=== PATIENT | female | born 1995 | race Caucasian/White ===

== ENCOUNTER 2018-01-21 20:41 | Emergency (ER) | payer OTHER ==
[2018-01-21] MEDS ORDERED: LIDOCAINE 1% MPF 5 ML VIAL ONE (21:20)
[2018-01-21] MEDS ORDERED: LIDOCAINE 1% W/EPI 1:100,000 MDV 50 ML VIAL ONE (21:49)
--- NOTE | 2018-01-21 22:52 | EDPHYS ---
Physician Documentation [facility] Name: Evelia Peck Age: 22 yrs Sex: Female : 1995 Arrival Date: 01/21/2018 Time: 20:41 Bed 25 Private MD: ED Physician Orlin Nagel HPI: 01/21 21:25 This 22 yrs old Female presents to ER via Ambulatory with complaints of cp Splinter. 21:25 The patient presents with foreign body. cp 21:25 The complaints affect the heel of right foot. Context: stepped on piece of wood. Onset: cp The symptoms/episode began/occurred just prior to arrival. PET HANDLER: 20:47 LMP 12/21/2017 la1 Historical: - Allergies: 20:46 No Known Allergies; la1 - PMHx: 20:46 Endometriosis; la1 - Immunization history:: Adult Immunizations up to date. - Social history:: Smoking status: Patient uses tobacco products, smokes one-half pack cigarettes per day. - Ebola Screening: : No symptoms or risks identified at this time. ROS: 21:30 Constitutional: Negative for body aches, chills, fever, poor PO intake. cp 21:30 Skin: Positive for of the heel of right foot, wooden foreign body, Negative for cp cellulitis, rash. 21:30 Neuro: Negative for numbness. 21:30 All other systems are negative. Exam: 21:35 Constitutional: The patient appears in no acute distress, alert, awake, non-toxic, well cp developed, well nourished. 21:35 Head/Face: Normocephalic, atraumatic. cp 21:35 Eyes: Periorbital structures: appear normal, Conjunctiva: normal, no exudate, no injection, Lids and lashes: appear normal, bilaterally. 21:35 ENT: External ear(s): are unremarkable, Nose: is normal, Mouth: is normal, Posterior pharynx: is normal, airway is patent. 21:35 Chest/axilla: Inspection: normal. 21:35 Cardiovascular: Rate: normal. 21:35 Respiratory: the patient does not display signs of respiratory distress, Respirations: normal, no use of accessory muscles, no retractions, no splinting, no tachypnea. 21:35 Skin: injury, that can be described as foreign body containing, without bleeding, puncture(s), that are superficial, of the heel of right foot. Vital Signs: 20:47 BP 106 / 70; Pulse 91; Resp 15; Temp 97.4; Pulse Ox 100% on R/A; Weight 58.97 kg; la1 Height 5 ft. 1 in. (154.94 cm); 20:47 Body Mass Index 24.56 (58.97 kg, 154.94 cm) la1 Procedures: 22:48 Foreign Body Removal: sliver of wood, from the heel of right foot, by incising to cp remove, using lidocaine 1% with epinephrine to anesthesize the area, tweezers, Dressinx4s were used to dress the wound, bacitracin, The patient tolerated the removal well, wound irrigated. MDM: 21:13 Patient medically screened. cp 22:00 Differential diagnosis: foreign body, puncture wound. cp 22:49 Data reviewed: vital signs, nurses notes, and as a result, I will discharge patient. cp 22:49 Counseling: I had a detailed discussion with the patient and/or guardian regarding: the cp historical points, exam findings, and any diagnostic results supporting the discharge/admit diagnosis, to return to the emergency department if symptoms worsen or persist or if there are any questions or concerns that arise at home. Response to treatment: the patient's symptoms have markedly improved after treatment, and as a result, I will discharge patient. Special discussion: I discussed in detail with the patient the higher chance of wound infection based on his presenting history. 01/21 22:18 Order name: Wound dressing: please clean and irrigate wound, dress with betadine; cp Complete Time: 22:43 Administered Medications: 21:50 Drug: Lidocaine-Epinephrine -1%: (1:100,000) 5 ml Volume: 20 ml; Route: Infiltration; aj Disposition: 23:30 Chart complete. cp Disposition: 01/21/18 22:50 Discharged to Home. Impression: Removal of Foreign Body from Right Heel. - Condition is Stable. - Discharge Instructions: Foreign Body. - Prescriptions for Keflex 500 mg Oral Capsule - take 1 capsule by ORAL route every 6 hours for 7 days; 20 capsule. - Medication Reconciliation Form, Thank You Letter, Antibiotic Education, Prescription Opioid Use form. - Follow up: Private Physician; When: 2 - 3 days; Reason: Wound Recheck. - Problem is new. - Symptoms have improved. Addendum: 01/24/2018 08:57 Co-signature as Attending Physician, Orlin Nagel MD I agree with the assessment and c paulson plan of care. Signatures: Lauren Calabrese, RN Orlin Day MD MD cha Attema, Lee RN RN la1 Orlin Reardon PA PA cp Michael Lucio RN RN rv Corrections: (The following items were deleted from the chart) 01/21 22:55 22:50 01/21/2018 22:50 Discharged to Home. Impression: Removal of Foreign Body from rv Right Heel. Condition is Stable. Forms are Medication Reconciliation Form, Thank You Letter, Antibiotic Education, Prescription Opioid Use. Follow up: Private Physician; When: 2 - 3 days; Reason: Wound Recheck. Problem is new. Symptoms have improved. cp
--- NOTE | 2018-01-21 22:52 | ER ---
Nurse's Notes [facility] Name: Evelia Peck Age: 22 yrs Sex: Female : 1995 Arrival Date: 01/21/2018 Time: 20:41 Bed 25 Private MD: Diagnosis: Removal of Foreign Body from Right Heel Presentation: 01/21 20:46 Presenting complaint: Patient states: I have a splinter in the bottom of my right foot la1 I cant get out and I also just found out I am today. Transition of care: patient was not received from another setting of care. Onset of symptoms was January 21, 2018. Risk Assessment: Do you want to hurt yourself or someone else? Patient reports no desire to harm self or others. Initial Sepsis Screen: Does the patient meet any 2 criteria? No. Patient's initial sepsis screen is negative. Does the patient have a suspected source of infection? No. Patient's initial sepsis screen is negative. Care prior to arrival: None. 20:46 Method Of Arrival: Ambulatory la1 20:46 Acuity: FELECIA 4 la1 UROGYNECOLOGY PHYSICIAN: 20:47 LMP 12/21/2017 la1 Historical: - Allergies: 20:46 No Known Allergies; la1 - PMHx: 20:46 Endometriosis; la1 - Immunization history:: Adult Immunizations up to date. - Social history:: Smoking status: Patient uses tobacco products, smokes one-half pack cigarettes per day. - Ebola Screening: : No symptoms or risks identified at this time. Screenin:52 Abuse screen: Denies threats or abuse. Denies injuries from another. Nutritional aj screening: No deficits noted. Tuberculosis screening: No symptoms or risk factors identified. Fall Risk None identified. Assessment: 20:52 General: Appears in no apparent distress. comfortable, Behavior is calm, cooperative, aj appropriate for age. Pain: Denies pain. Neuro: Level of Consciousness is awake, alert, obeys commands, Oriented to person, place, time, situation, Appropriate for age. Respiratory: Airway is patent Respiratory effort is even, unlabored, Respiratory pattern is regular, symmetrical. Derm: Skin is intact, is healthy with good turgor, Skin is pink, warm \T\ dry. normal. Injury Description: Puncture sustained to heel of right foot is superficial, was sustained 2-4 hours ago. 21:23 Reassessment: Patient appears in no apparent distress at this time. No changes from previously documented assessment. Patient and/or family updated on plan of care and expected duration. Pain level reassessed. Patient is alert, oriented x 3, equal unlabored respirations, skin warm/dry/pink. Vital Signs: 20:47 BP 106 / 70; Pulse 91; Resp 15; Temp 97.4; Pulse Ox 100% on R/A; Weight 58.97 kg; la1 Height 5 ft. 1 in. (154.94 cm); 20:47 Body Mass Index 24.56 (58.97 kg, 154.94 cm) la1 ED Course: 20:41 Patient arrived in ED. ds1 20:46 Triage completed. la1 20:47 Arm band placed on left wrist. la1 20:48 Lauren Calabrese, RN is Primary Nurse. aj 20:52 Patient has correct armband on for positive identification. aj 21:13 Orlin Reardon PA is PHCP. cp 21:13 Orlin Nagel MD is Attending Physician. cp 21:50 Assist provider with foreign body removal of a splinter from right heel of foot. Patient did not have IV access during this emergency room visit. 22:25 Assisted to bedside commode. jp3 22:51 Wound care: to Splinter located on heel of right foot was cleaned with Betadine, jp3 dressed with Neosporin, band aid, Band-Aid was wrapped with coban tape, Patient tolerated well. Administered Medications: 21:50 Drug: Lidocaine-Epinephrine -1%: (1:100,000) 5 ml Volume: 20 ml; Route: Infiltration; Outcome: 21:50 Condition: good 22:50 Discharge ordered by MD. cp 22:55 Discharged to home ambulatory. rv 22:55 Discharge instructions given to patient. 22:55 Discharge instructions given to patient, Instructed on discharge instructions, follow up and referral plans. medication usage, Prescriptions given X 1. 22:55 Patient left the ED. rv Signatures: Lauren Calabrese, Yaz Clark RN ds1 Cuba Shin RN RN la1 Orlin Reardon PA PA cp Vicente, Ronaldo, RN RN rv Apollo Vance jp3
== END 2018-01-21 22:55 | disposition home or self-care (01) ==
LOC: ER 20:41
PROC: 0HCMXZZ Extirpation of Matter from Right Foot Skin, External Approach (ICD-10-PCS; principal; 2018-01-21)
DX: S90.851A Superficial foreign body, right foot, initial encounter (principal); F17.210 Nicotine dependence, cigarettes, uncomplicated; W22.8XXA Striking against or struck by other objects, initial encounter; Y93.9 Activity, unspecified; Y92.9 Unspecified place or not applicable
CPT/HCPCS: 99284